=== PATIENT | female | born 2005 | race Caucasian/White ===

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

== ENCOUNTER 2025-01-20 01:24 | Emergency (ER) | payer BC, OTHER | END 2025-01-20 01:39 | disposition home or self-care (01) | LOC: VM.ED 01:24 | DX: S41.111A Laceration without foreign body of right upper arm, initial encounter (principal); S81.811A Laceration without foreign body, right lower leg, initial encounter; X78.1XXA Intentional self-harm by knife, initial encounter; Y93.89 Activity, other specified | CPT/HCPCS: 99283; 99284 ==